=== PATIENT | male | born 1930 | race Caucasian/White ===

== ENCOUNTER 2017-03-20 14:02 | Outpatient (CLI) | payer OTHER, BC ==
--- NOTE | 2017-03-20 16:07 | DIAGNOSTIC IMAGING REPORT ---
PROCEDURE: XR LUMBAR SPINE 5 VIEWS INDICATION: HIP PAIN BILATERAL, LOW BACK PAIN TECHNIQUE: Five views. COMPARISON: Lumbar spine films 10/30/2016 FINDINGS: In the interval there is a new compression deformity of L2. This represents less than 20% of the vertebral body height. Also in the interval there has been a marked increase in the spondylosis at L3-4. There is 3-4 mm of retrolisthesis at L3-4. There has been no change in the severe spondylosis at L 4/5 and L5-S1. IMPRESSION: 1. New mild compression deformity L2. 2. New severe spondylosis at L3-4. 3. No change in spondylosis at L4-5 L5-S1
--- NOTE | 2017-03-20 16:10 | DIAGNOSTIC IMAGING REPORT ---
PROCEDURE: XR HIP BILATERAL INDICATION: HIP PAIN BILATERAL, LOW BACK PAIN TECHNIQUE: AP view of the pelvis and hips with lateral views of the bilateral hips. COMPARISON: None. FINDINGS: RIGHT HIP: Severe osteoarthritis with the joint space narrowing medially. LEFT HIP: Severe osteoarthritis with the joint space narrowing medially. PELVIS: Osseous pelvis is normal. IMPRESSION: 1. 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
== END 2017-03-20 23:00 ==
LOC: XR SRH 14:02
DX: M47.817 Spondylosis without myelopathy or radiculopathy, lumbosacral region (principal); M16.0 Bilateral primary osteoarthritis of hip